=== PATIENT | female | born 1995 | race Caucasian/White ===

== ENCOUNTER 2016-12-31 19:47 | Emergency (ER) | payer SELFPAY ==
[~2016-12-31] VITALS: Ht 167.6 cm; Wt 53.1 kg
[~2016-12-31 19:47] MED LIST: NO MEDS
[2016-12-31 20:01] VITALS: BP 134/72
[2016-12-31] MEDS ORDERED: CLINDAMYCIN 900 MG/6 ML VIAL IM ONE (20:30)
[2016-12-31] MEDS ORDERED: CLINDAMYCIN 900 MG/6 ML VIAL ONE (20:52)
--- NOTE | 2016-12-31 21:00 | NUR ---
PT REFUSED OFFER OF CRUTCHES, STATES SHE HAS THEM AT HOME.
== END 2016-12-31 21:36 | disposition home or self-care (01) ==
LOC: ER 19:48
DX: L03.115 Cellulitis of right lower limb (principal); S91.331A Puncture wound without foreign body, right foot, initial encounter; W22.8XXA Striking against or struck by other objects, initial encounter; Y93.89 Activity, other specified; Y92.832 Beach as the place of occurrence of the external cause; Y99.8 Other external cause status
CPT/HCPCS: A4606; J3490; Z7610

== ENCOUNTER 2017-10-02 22:36 | Emergency (ER) | payer OTHER ==
[~2017-10-02] VITALS: Ht 167.6 cm; Wt 57.6 kg
[2017-10-02 22:45] VITALS: BP 124/81
[2017-10-02] MEDS ORDERED: predniSONE 20 MG TABLET ONE (23:43)
[2017-10-02] MEDS: predniSONE 20 MG TABLET PO ONE (23:45)
== END 2017-10-02 23:53 | disposition home or self-care (01) ==
LOC: ER 22:38
DX: T78.1XXA Other adverse food reactions, not elsewhere classified, initial encounter (principal); X58.XXXA Exposure to other specified factors, initial encounter
CPT/HCPCS: A4606; A6402; Z7610

== ENCOUNTER 2017-10-03 17:56 | Emergency (ER) | payer OTHER ==
--- NOTE | 2017-10-03 18:15 | NUR ---
PRESENTS TO ER C/O NOSE BLEED, S/P LAYING DOWN 20 MINUTES TR[employer]INE[employer]. NOSE CLAMPS APPLIED IMMEDIATELY. NO TRAUMA NOTED. A/OX 4. BREATHING EVEN AND UNLABORED. NO SOB, NAD, VITALS STABLE. SAFETY AND COMFORT MEASURES IN PLACE. AWAITING MD ORDERS.
--- NOTE | 2017-10-03 18:32 | NUR ---
KAYODE DIAZ AT BEDSIDE FOR EVAL.
[2017-10-03] MEDS ORDERED: OXYMETAZOLINE HCL NASAL SPRAY 30 ML BOTTLE NS ONE (19:01)
--- NOTE | 2017-10-03 19:26 | NUR ---
REPORT GIVEN TO AASHISH LOPEZ FOR EM.
[2017-10-03] MEDS ORDERED: PHENYLEPHRINE HCL NASAL SPRAY 15 ML BOTTLE NS ONE ×2 (19:30→19:33)
== END 2017-10-03 20:00 | disposition home or self-care (01) ==
LOC: ER 17:58
DX: R04.0 Epistaxis (principal)
CPT/HCPCS: A4606; Z7610

== ENCOUNTER 2017-10-06 18:23 | Emergency (ER) | payer OTHER ==
[~2017-10-06] VITALS: Ht 167.6 cm; Wt 57.6 kg
[2017-10-06 18:25] VITALS: BP 128/87
[2017-10-06 19:04] LABS: APPEARANCE,URINE Clear (CLEAR); BILIRUBIN,URINE Negative (NEGATIVE); BLOOD, URINE Trace-lysed Ery/uL (NEGATIVE); COLOR,URINE Yellow (YELLOW); KETONES,URINE Negative (NEGATIVE); LEUKOCYTE ESTERASE ,URINE Trace (NEGATIVE); NITRITE, URINE Negative (NEGATIVE); PROTEIN,URINE Negative (NEGATIVE); UGLUCOSE Negative (NEGATIVE); UROBILINOGEN,URINE 0.2 EU/dL (0.2)
[2017-10-06 19:20] LABS: BACTERIA,URINE Rare /HPF (None Seen); SQUAMOUS EPITHELIAL CELL,UR Rare /HPF (None Seen); WBC,URINE 0-2 /HPF (0-3)
== END 2017-10-06 19:39 | disposition home or self-care (01) ==
LOC: ER 18:33
DX: N89.8 Other specified noninflammatory disorders of vagina (principal)
CPT/HCPCS: 81001; 84703; 87086; 99284; A4606; Z7610; 81000-TC

== ENCOUNTER 2017-12-22 20:28 | Emergency (ER) | payer OTHER ==
[~2017-12-22] VITALS: Ht 167.6 cm; Wt 59.0 kg
[2017-12-22 20:49] VITALS: BP 106/73
== END 2017-12-22 22:11 | disposition home or self-care (01) ==
LOC: ER 20:28
DX: H61.22 Impacted cerumen, left ear (principal)
CPT/HCPCS: 69209; 99282; A4606; Z7610